=== PATIENT | male | born 1960 | race Caucasian/White ===

== ENCOUNTER 2017-10-15 10:13 | Emergency (ER) | payer OTHER ==
[~2017-10-15] VITALS: Ht 175.3 cm; Wt 81.6 kg
[2017-10-15] MEDS ORDERED: ASPIR 8181 MG (10:22)
[2017-10-15] MEDS ORDERED: METOPROLOL SUCC25 MG (10:23)
[2017-10-15] MEDS ORDERED: LIPITOR80 MG (10:23)
== END 2017-10-15 13:26 | disposition home or self-care (01) ==
LOC: ER 10:13
DX: I10 Essential (primary) hypertension (principal)